=== PATIENT | female | born 1960 | race Caucasian/White ===

== ENCOUNTER 2020-06-29 08:35 | Outpatient (CLI) | payer BC | END 2020-06-29 08:36 | disposition home or self-care (01) | LOC: BICMAMMO 08:35 | PROVIDERS: ATTEND Obstetrics & Gynecology | DX: N63.10 Unspecified lump in the right breast, unspecified quadrant (principal) | CPT/HCPCS: 77066; G0279 ==

== ENCOUNTER 2022-04-29 19:27 | Inpatient (IN) | payer OTHER, SELFPAY ==
[~2022-04-29 19:27] MED LIST: Iopamidol-370 76% 500 ML 1 ML ONE
[2022-04-29] MEDS ORDERED: Rocuronium Bromide 10 MG/ML (10ML VIAL) ONE ×2 (19:39→21:20)
[2022-04-29] MEDS ORDERED: Propofol 1,000 MG/100 ML VIAL IV ONE (19:40)
[2022-04-29 19:49] LABS: #Basophils 0.1 thou/uL (0.0-0.2); #Eosinphils 0.2 thou/uL (0.0-0.7); #Lymphocytes 5.2 thou/uL (1.20-3.40); #Monocytes 1.5 thou/uL (0.11-0.59); #Neutrophils 5.1 thou/uL (1.40-6.50); %Basophils 0.6 % (0.0-1.0); %Lymphocytes 42.6 % (21.0-51.0); %Monocytes 12.5 % (0.0-10.0); %Neutrophils 42.3 % (42.0-75.0); Mean Corpuscular HGB CONC 32.9 g/dL (32.0-36.0); Mean Corpuscular Hemoglobin 31.1 pg (27.0-31.0); Mean Corpuscular Volume 94.6 fl (78.0-98.0); Mean Platelet Volume 7.6 fL (7.4-10.4); Platelet Count 205 10x3/uL (130-400); RBC Distribution Width 17.7 % (11.5-14.5); Red Blood Cell (RBC) Count 2.25 mill/uL (4.20-5.40); White Blood Cell (WBC) Count 12.2 10x3/uL (4.8-10.8)
[2022-04-29 19:58] LABS: ALT (SGPT) 15 U/L (8-55); AST (SGOT) 84 U/L (5-34); Alkaline Phosphatase 132 U/L (40-110); Anion Gap 15 mmol/L (10-20); BUN (Urea Nitrogen) 10 mg/dL (9.8-20.1); Bilirubin, Total 3.2 mg/dL (0.2-1.2); CK (CPK) 43 U/L (29-168); Calc. Creatinine Clearance 0 mL/min (70-130); Calcium 7.7 mg/dL (7.8-10.44); Carbon Dioxide 21 mmol/L (22-29); Chloride 96 mmol/L (98-107); Estimated GFR 56; Glucose 110 mg/dL (70-105); Potassium 3.1 mmol/L (3.5-5.1); Sodium 129 mmol/L (136-145)
[2022-04-29 20:07] LABS: INR-International Normal Ratio 1.5; PTT 43.8 sec (22.9-36.1); Prothrombin Time 18.4 sec (12.0-14.7)
[2022-04-29 20:11] LABS: Actual Bicarbonate (HCO3a) 24.4 mEq/L (22-28); Analyzer IN Cardio ER; Base Excess (BEa) 2.2 mEq/L (-2.0 to +3.0); CO2 Tension 27.4 mmHg (35.0-45.0); Calcium, Ionized (arterial) 1.04 mmol/L (1.12-1.30); Carboxyhemoglobin (COHb) 0.5 gm% (0.0-3.0); Hemoglobin (Hb) 6.7 g/dL (12.0-16.0); Potassium - ABG Lab 2.78 mmol/L (3.70-5.30); pH, Arterial 7.57 (7.35-7.45)
[2022-04-29] MEDS ORDERED: Sodium Chloride 3% 500 ML IVPB SCH (20:15)
[2022-04-29] MEDS ORDERED: manNITOL 20% 0 ML ONE (20:18)
[2022-04-29] MEDS ORDERED: levETIRAcetam 500 MG/5 ML VIAL ONE ×2 (20:18)
[2022-04-29 20:26] LABS: Bilirubin Negative (Negative); Blood, Urine Negative (Negative); Clarity Clear (Clear); Glucose, Urine (Dipstick) Normal (Negative); Ketone, Urine Negative (Negative); Leukocyte Negative Leu/uL (Negative); Nitrite Negative (Negative); Protein, Urine (Dipstick) Negative (Neg-Trace); Specific Gravity, Urine 1.012 (1.002-1.036); Urobilinogen Normal mg/dL (Less than 2); pH, Urine 6.5 (5.0-9.0)
[2022-04-29] MEDS ORDERED: Mannitol 12.5 GM/50 ML ONE (20:27)
[2022-04-29] MEDS ORDERED: Midazolam HCl 2 mg/2 ml Vial ONE (20:27)
[2022-04-29] MEDS ORDERED: EPINEPHrine 1 MG/ML AMP ONE (21:11)
[2022-04-29] MEDS ORDERED: Lidocaine 1% (PF) 30 ML VIAL ONE (21:11)
[2022-04-29] MEDS ORDERED: PHENYLEPHRINE-NS 100 MCG/ML 10 ML SYRINGE ONE (21:20)
[2022-04-29] MEDS ORDERED: Albumin 5% 500 ML ONE (21:23)
[2022-04-29 21:39] LABS: Acetaminophen Less than 10.0 mcg/mL (10.0-30.0); Alcohol 149 mg/dL (Less than 10); Salicylate Less than 8.0 mg/dL (15.0-30.0)
[2022-04-29] MEDS ORDERED: Thrombin 5000 UNITS/5 ML VIAL ONE (21:40)
[2022-04-29 21:58] LABS: SARS-CoV-2 NAA Rapid Test Not Detected (NotDetected)
[2022-04-29 22:03] LABS: Amphetamine Not Detected (NotDetected); Barbiturates Screen Not Detected (NotDetected); Benzodiazepine Screen Detected (NotDetected); Cocaine Metabolite Screen Not Detected (NotDetected); Methadone Not Detected (NotDetected); Methamphetamine Not Detected (NotDetected); Opiate Screen Not Detected (NotDetected); Oxycodone Screen Not Detected (NotDetected); Phencyclidine (PCP) Not Detected (NotDetected); THC/Cannabinoid Screen Not Detected (NotDetected); Tricyclic Screen Not Detected (NotDetected)
[2022-04-29] MEDS ORDERED: Ondansetron PF 4 MG/2 ML Vial IVP PRN (22:29)
[2022-04-29] MEDS ORDERED: Dextrose 5% in Water 1,000 ML IV PRN (22:29)
[2022-04-29] MEDS ORDERED: Dextrose 50% Abboject 50 ML SYRINGE SLOW IVP PRN (22:29)
[2022-04-29] MEDS ORDERED: TETANUS, DIPHTHERIA TOX,ADULT (TDVAX) 0.5 ML VIAL IM ONE (22:29)
[2022-04-29] MEDS ORDERED: Ipratropium/Albuterol 3 ML NEB NEB PRN (22:29)
[2022-04-29] MEDS ORDERED: Insulin Regular 300 UNITS/3 ML VIAL SC PRN (22:29)
[2022-04-29 22:33] LABS: PTT 48.1 sec (22.9-36.1)
[2022-04-29 22:39] LABS: INR-International Normal Ratio 1.9; Prothrombin Time 22.9 sec (12.0-14.7)
[2022-04-29 22:52] LABS: Actual Bicarbonate (HCO3a) 19.4 mEq/L (22-28); Base Excess (BEa) -5.1 mEq/L (-2.0 to +3.0); CO2 Tension 33.1 mmHg (35.0-45.0); Calcium, Ionized (arterial) 0.97 mmol/L (1.12-1.30); Carboxyhemoglobin (COHb) 0.6 gm% (0.0-3.0); Hemoglobin (Hb) 7.4 g/dL (12.0-16.0); O2 Tension (PaO2), arterial 119.8 mmHg (> 80.0); Potassium - ABG Lab 2.95 mmol/L (3.70-5.30); pH, Arterial 7.39 (7.35-7.45)
[2022-04-29 22:56] LABS: ALV-art Gradient 124.025 mmHg (0-20); Puncture Site ART LINE
[2022-04-29] MEDS ORDERED: Propofol 1,000 MG/100 ML VIAL IV PRN (23:00)
[2022-04-29] MEDS ORDERED: Fentanyl CADD 100 ML IV SCH (23:00)
[2022-04-29] MEDS ORDERED: Ventilator Sedation Protocol 1 EACH FS SCH (23:00)
[2022-04-29] MEDS ORDERED: Calcium Chloride 13.6 MEQ in Sodium Chloride 0.9% 100 ML IVPB SCH (23:15)
[2022-04-29 23:23] LABS: #Eosinphils 0.1 thou/uL (0.0-0.7); #Lymphocytes 1.6 thou/uL (1.20-3.40); #Neutrophils 4.7 thou/uL (1.40-6.50); %Basophils 0.7 % (0.0-1.0); %Eosinophils 0.7 % (0.0-10.0); %Lymphocytes 21.6 % (21.0-51.0); %Monocytes 13.8 % (0.0-10.0); %Neutrophils 63.2 % (42.0-75.0); Hemoglobin 6.8 g/dL (12.0-16.0); Mean Corpuscular HGB CONC 32.8 g/dL (32.0-36.0); Mean Corpuscular Hemoglobin 30.7 pg (27.0-31.0); Mean Corpuscular Volume 93.3 fl (78.0-98.0); Mean Platelet Volume 7.3 fL (7.4-10.4); Platelet Count 130 10x3/uL (130-400); RBC Distribution Width 14.6 % (11.5-14.5); White Blood Cell (WBC) Count 7.5 10x3/uL (4.8-10.8)
[2022-04-29 23:41] LABS: Anion Gap 14 mmol/L (10-20); BUN (Urea Nitrogen) 8 mg/dL (9.8-20.1); Calc. Creatinine Clearance 0 mL/min (70-130); Carbon Dioxide 18 mmol/L (22-29); Chloride 102 mmol/L (98-107); Estimated GFR 82; Glucose 134 mg/dL (70-105); Magnesium 1.5 mg/dL (1.6-2.6); Phosphorus 3.6 mg/dL (2.3-4.7); Potassium 2.9 mmol/L (3.5-5.1); Sodium 131 mmol/L (136-145)
[2022-04-29 23:42] LABS: Lactic Acid 4.3 mmol/L (0.5-2.2)
[2022-04-29 23:43] LABS: Calcium 6.6 mg/dL (7.8-10.44)
[2022-04-29] MEDS ORDERED: Magnesium 2 GM/50 ML(in water) 2 GM in Premix Bag 1 BAG IVPB SCH (23:45)
[2022-04-29] MEDS: Sodium Chloride 0.9% 1,000 ML IV SCH (23:48)
[2022-04-29] MEDS ORDERED: Potassium Phosphate 30 MMOL in Sodium Chloride 0.9% 250 ML 250 ML IVPB SCH (23:59)
[2022-04-29] MEDS ORDERED: Acetaminophen 325 MG TAB PO SCH (23:59)
[2022-04-30 00:01] LABS: Fibrinogen 64 mg/dL (253-463)
[2022-04-30 04:24] LABS: Puncture Site RRA
[2022-04-30] MEDS ORDERED: Fentanyl CADD 100 ML ONE (05:01)
[2022-04-30 05:31] LABS: Actual Bicarbonate (HCO3a) 19.1 mEq/L (22-28); Base Excess (BEa) -2.6 mEq/L (-2.0 to +3.0); Carboxyhemoglobin (COHb) 0.3 gm% (0.0-3.0); Hemoglobin (Hb) 7.9 g/dL (12.0-16.0); O2 Tension (PaO2), arterial 115.6 mmHg (> 80.0); Potassium - ABG Lab 3.25 mmol/L (3.70-5.30); pH, Arterial 7.54 (7.35-7.45)
[2022-04-30] MEDS: CEFAZOLIN 2 GM in Sodium Chloride 0.9% 100 ML IVPB SCH ×3 (05:32→22:07)
[2022-04-30 05:34] LABS: ALV-art Gradient 141.225 mmHg (0-20); CO2 Tension 22.7 mmHg (35.0-45.0); Puncture Site ART LINE
[2022-04-30 05:36] LABS: #Monocytes 1.4 thou/uL (0.11-0.59); #Neutrophils 8.6 thou/uL (1.40-6.50); %Basophils 0.3 % (0.0-1.0); %Eosinophils 0.4 % (0.0-10.0); %Lymphocytes 16.6 % (21.0-51.0); %Monocytes 11.4 % (0.0-10.0); %Neutrophils 71.3 % (42.0-75.0); Hemoglobin 7.8 g/dL (12.0-16.0); Mean Corpuscular Volume 91.3 fl (78.0-98.0); Mean Platelet Volume 7.4 fL (7.4-10.4); Platelet Count 159 10x3/uL (130-400); RBC Distribution Width 14.7 % (11.5-14.5); Red Blood Cell (RBC) Count 2.52 mill/uL (4.20-5.40)
[2022-04-30 05:52] LABS: INR-International Normal Ratio 1.4; PTT 37.5 sec (22.9-36.1); Prothrombin Time 17.9 sec (12.0-14.7)
[2022-04-30 05:54] LABS: Lactic Acid 3.1 mmol/L (0.5-2.2)
[2022-04-30] MEDS ORDERED: CEFAZOLIN 1 GM VIAL SLOW IVP SCH (06:00)
[2022-04-30 06:06] LABS: ALT (SGPT) 13 U/L (8-55); AST (SGOT) 58 U/L (5-34); Albumin 2.3 g/dL (3.5-5.0); Alkaline Phosphatase 87 U/L (40-110); Anion Gap 14 mmol/L (10-20); BUN (Urea Nitrogen) 7 mg/dL (9.8-20.1); Bilirubin, Total 4.8 mg/dL (0.2-1.2); Calc. Creatinine Clearance 78 mL/min (70-130); Calcium 8.9 mg/dL (7.8-10.44); Carbon Dioxide 20 mmol/L (22-29); Chloride 103 mmol/L (98-107); Estimated GFR 84; Globulin 4.1 g/dL (2.4-3.5); Glucose 134 mg/dL (70-105); Magnesium 2.1 mg/dL (1.6-2.6); Phosphorus 4.2 mg/dL (2.3-4.7); Potassium 3.2 mmol/L (3.5-5.1); Protein, Total 6.4 g/dL (6.0-8.3); Sodium 134 mmol/L (136-145)
[2022-04-30] MEDS: Oxazepam 10 MG CAP PO SCH ×3 (06:47→22:08)
[2022-04-30] MEDS: Ipratropium/Albuterol 3 ML NEB NEB SCH ×3 (07:34→18:31)
[2022-04-30] MEDS ORDERED: Vecuronium Bromide 50 MG in Sodium Chloride 0.9% 250 ML 250 ML IV SCH (07:45)
[2022-04-30] MEDS ORDERED: levETIRAcetam in NS 500 MG in Premix Bag 1 BAG IVPB SCH (09:00)
[2022-04-30] MEDS ORDERED: Famotidine/PF 20 mg/2ml Vial SLOW IVP SCH (09:00)
[2022-04-30] MEDS: Sodium Chloride 0.9% 1,000 ML IV SCH ×2 (09:48→20:06)
[2022-04-30] MEDS ORDERED: Albumin 5% 250 ML ONE ×3 (10:13→18:39)
[2022-04-30 10:21] LABS: Actual Bicarbonate (HCO3a) 22.6 mEq/L (22-28); Base Excess (BEa) -0.9 mEq/L (-2.0 to +3.0); CO2 Tension 31.5 mmHg (35.0-45.0); Calcium, Ionized (arterial) 1.12 mmol/L (1.12-1.30); Carboxyhemoglobin (COHb) 0.9 gm% (0.0-3.0); Hemoglobin (Hb) 6.1 g/dL (12.0-16.0); O2 Tension (PaO2), arterial 115.4 mmHg (> 80.0); Potassium - ABG Lab 3.67 mmol/L (3.70-5.30); pH, Arterial 7.47 (7.35-7.45)
[2022-04-30 10:25] LABS: Puncture Site Arterial Line
[2022-04-30 10:26] LABS: ALV-art Gradient 130.425 mmHg (0-20)
[2022-04-30] MEDS: Polyethylene Glycol 3350 17 GM Packet PO SCH (11:49)
[2022-04-30] MEDS: Pantoprazole 40 MG VIAL IVP SCH ×2 (11:49→22:07)
[2022-04-30] MEDS: Thiamine 100 MG TAB PO SCH (11:49)
[2022-04-30] MEDS: Folic Acid 1 MG TAB PO SCH (11:49)
[2022-04-30] MEDS: levETIRAcetam 500 MG/5 ML VIAL SLOW IVP SCH ×2 (11:49→22:08)
[2022-04-30] MEDS: Senokot S 8.6-50 MG TAB PO SCH ×2 (11:49→22:35)
[2022-04-30] MEDS: Multivitamin W/ Minerals 1 TAB PO SCH (11:49)
[2022-04-30] MEDS ORDERED: Hydrocortisone Sod Succ/PF 100 mg/2 ml Vial IVP SCH (12:00)
[2022-04-30 14:41] LABS: #Lymphocytes 1.2 thou/uL (1.20-3.40); #Monocytes 1.4 thou/uL (0.11-0.59); #Neutrophils 8.8 thou/uL (1.40-6.50); %Basophils 0.4 % (0.0-1.0); %Eosinophils 0.2 % (0.0-10.0); %Lymphocytes 10.6 % (21.0-51.0); %Monocytes 12.3 % (0.0-10.0); %Neutrophils 76.6 % (42.0-75.0); Hemoglobin 6.8 g/dL (12.0-16.0); Mean Corpuscular HGB CONC 34.9 g/dL (32.0-36.0); Mean Corpuscular Hemoglobin 31.4 pg (27.0-31.0); Mean Corpuscular Volume 90.1 fl (78.0-98.0); Mean Platelet Volume 7.5 fL (7.4-10.4); Platelet Count 124 10x3/uL (130-400); RBC Distribution Width 14.5 % (11.5-14.5); Red Blood Cell (RBC) Count 2.16 mill/uL (4.20-5.40); White Blood Cell (WBC) Count 11.5 10x3/uL (4.8-10.8)
[2022-04-30 14:55] LABS: INR-International Normal Ratio 1.6; Prothrombin Time 19.7 sec (12.0-14.7)
[2022-04-30 14:56] LABS: PTT 39.4 sec (22.9-36.1)
[2022-04-30] MEDS ORDERED: Phytonadione 5 MG in Sodium Chloride 0.9% 50 ML IVPB SCH (15:15)
[2022-04-30 15:18] LABS: Anion Gap 15 mmol/L (10-20); BUN (Urea Nitrogen) 8 mg/dL (9.8-20.1); Calc. Creatinine Clearance 70 mL/min (70-130); Calcium 8.1 mg/dL (7.8-10.44); Carbon Dioxide 20 mmol/L (22-29); Chloride 105 mmol/L (98-107); Estimated GFR 74; Glucose 169 mg/dL (70-105); Phosphorus 5.7 mg/dL (2.3-4.7); Potassium 3.6 mmol/L (3.5-5.1); Sodium 136 mmol/L (136-145)
[2022-04-30] MEDS ORDERED: Potassium Chloride 20 MEQ in Premix Bag 1 BAG IVPB SCH (15:45)
[2022-04-30] MEDS: Hydrocortisone Sod Succ/PF 100 mg/2 ml Vial IVP SCH ×2 (17:34→23:20)
[2022-04-30] MEDS: NOREPINEPHRINE 8 MG/250 ML-D5W 250 ML IVPB PRN (19:47)
[2022-04-30 21:01] LABS: Base Excess (BEa) -4.3 mEq/L (-2.0 to +3.0); CO2 Tension 39.2 mmHg (35.0-45.0); Calcium, Ionized (arterial) 1.12 mmol/L (1.12-1.30); Carboxyhemoglobin (COHb) 1.6 gm% (0.0-3.0); O2 Tension (PaO2), arterial 100.2 mmHg (> 80.0); Potassium - ABG Lab 3.95 mmol/L (3.70-5.30); pH, Arterial 7.35 (7.35-7.45)
[2022-04-30 21:02] LABS: Puncture Site Arterial Line
[2022-04-30] MEDS ORDERED: Calcium Chloride 1 GM/10 ML Abboject SYRINGE IVP SCH (21:45)
[2022-04-30] MEDS ORDERED: Midazolam In 0.9 % NaCl/PF 100 ML IVPB SCH (23:00)
[2022-04-30] MEDS: Vecuronium 10 MG VIAL ONE ×2 (23:21→23:22)
[2022-04-30] MEDS ORDERED: Sterile Water 10 ML VIAL FS PRN (23:29)
[2022-04-30] MEDS ORDERED: Vecuronium 10 MG VIAL IV SCH (23:30)
[2022-04-30] MEDS ORDERED: manNITOL 20% 0 ML ONE (23:46)
[2022-04-30] MEDS ORDERED: Mannitol 12.5 GM/50 ML SLOW IVP SCH (23:59)
[2022-05-01 05:05] LABS: #Lymphocytes 1.4 thou/uL (1.20-3.40); #Monocytes 1.6 thou/uL (0.11-0.59); #Neutrophils 10.7 thou/uL (1.40-6.50); %Eosinophils 0.1 % (0.0-10.0); %Lymphocytes 10.3 % (21.0-51.0); %Monocytes 11.7 % (0.0-10.0); %Neutrophils 77.8 % (42.0-75.0); Hemoglobin 5.8 g/dL (12.0-16.0); Mean Corpuscular HGB CONC 34.3 g/dL (32.0-36.0); Mean Corpuscular Hemoglobin 31.2 pg (27.0-31.0); Mean Corpuscular Volume 90.8 fl (78.0-98.0); Mean Platelet Volume 7.4 fL (7.4-10.4); Platelet Count 100 10x3/uL (130-400); RBC Distribution Width 13.6 % (11.5-14.5); Red Blood Cell (RBC) Count 1.85 mill/uL (4.20-5.40); White Blood Cell (WBC) Count 13.8 10x3/uL (4.8-10.8)
[2022-05-01 05:19] LABS: INR-International Normal Ratio 1.6; Prothrombin Time 19.8 sec (12.0-14.7)
[2022-05-01 05:20] LABS: PTT 40.1 sec (22.9-36.1)
[2022-05-01] MEDS: Sodium Chloride 0.9% 1,000 ML IV SCH ×2 (05:55→18:15)
[2022-05-01] MEDS: CEFAZOLIN 2 GM in Sodium Chloride 0.9% 100 ML IVPB SCH ×3 (05:55→21:23)
[2022-05-01] MEDS: Hydrocortisone Sod Succ/PF 100 mg/2 ml Vial IVP SCH ×4 (05:56→23:16)
[2022-05-01 06:01] LABS: ALT (SGPT) 7 U/L (8-55); AST (SGOT) 32 U/L (5-34); Albumin 3.1 g/dL (3.5-5.0); Alkaline Phosphatase 57 U/L (40-110); Anion Gap 12 mmol/L (10-20); BUN (Urea Nitrogen) 8 mg/dL (9.8-20.1); Calc. Creatinine Clearance 82 mL/min (70-130); Calcium 8.6 mg/dL (7.8-10.44); Carbon Dioxide 22 mmol/L (22-29); Chloride 108 mmol/L (98-107); Estimated GFR 83; Globulin 2.9 g/dL (2.4-3.5); Glucose 194 mg/dL (70-105); Phosphorus 3.7 mg/dL (2.3-4.7); Potassium 3.6 mmol/L (3.5-5.1); Sodium 138 mmol/L (136-145)
[2022-05-01 06:54] LABS: Actual Bicarbonate (HCO3a) 21.9 mEq/L (22-28); Base Excess (BEa) -3.4 mEq/L (-2.0 to +3.0); CO2 Tension 40.8 mmHg (35.0-45.0); Calcium, Ionized (arterial) 1.22 mmol/L (1.12-1.30); Carboxyhemoglobin (COHb) 0.7 gm% (0.0-3.0); Hemoglobin (Hb) 8.5 g/dL (12.0-16.0); O2 Tension (PaO2), arterial 92.2 mmHg (> 80.0); Potassium - ABG Lab 3.83 mmol/L (3.70-5.30); pH, Arterial 7.35 (7.35-7.45)
[2022-05-01 06:56] LABS: Puncture Site Arterial Line
[2022-05-01] MEDS: Ipratropium/Albuterol 3 ML NEB NEB SCH ×3 (06:57→19:21)
[2022-05-01] MEDS ORDERED: Levothyroxine 100 MCG SDV SLOW IVP SCH (07:00)
[2022-05-01] MEDS: Levothyroxine Sodium 400 MCG in Sodium Chloride 0.9% 100 ML IVPB SCH ×2 (07:59→17:51)
[2022-05-01] MEDS ORDERED: Potassium Phosphate 15 MMOL in Sodium Chloride 0.9% 250 ML 250 ML IVPB SCH (08:30)
[2022-05-01] MEDS: Multivitamin W/ Minerals 1 TAB PO SCH (09:03)
[2022-05-01] MEDS: Thiamine 100 MG TAB PO SCH (09:03)
[2022-05-01] MEDS: Folic Acid 1 MG TAB PO SCH (09:03)
[2022-05-01] MEDS: Polyethylene Glycol 3350 17 GM Packet PO SCH (09:03)
[2022-05-01] MEDS: levETIRAcetam 500 MG/5 ML VIAL SLOW IVP SCH ×2 (09:04→21:28)
[2022-05-01] MEDS: Senokot S 8.6-50 MG TAB PO SCH ×2 (09:05→21:28)
[2022-05-01] MEDS: Pantoprazole 40 MG VIAL IVP SCH ×2 (09:05→21:28)
[2022-05-01 12:13] LABS: #Lymphocytes 1.2 thou/uL (1.20-3.40); #Monocytes 1.3 thou/uL (0.11-0.59); #Neutrophils 9.4 thou/uL (1.40-6.50); %Basophils 0.1 % (0.0-1.0); %Eosinophils 0.2 % (0.0-10.0); %Lymphocytes 9.7 % (21.0-51.0); %Monocytes 11.2 % (0.0-10.0); %Neutrophils 78.8 % (42.0-75.0); Hemoglobin 8.3 g/dL (12.0-16.0); Mean Corpuscular Hemoglobin 30.9 pg (27.0-31.0); Mean Corpuscular Volume 90.9 fl (78.0-98.0); Mean Platelet Volume 7.7 fL (7.4-10.4); Platelet Count 98 10x3/uL (130-400)
[2022-05-01 13:41] LABS: INR-International Normal Ratio 1.5; Prothrombin Time 18.7 sec (12.0-14.7)
[2022-05-01 13:42] LABS: PTT 38.3 sec (22.9-36.1)
[2022-05-02] MEDS ORDERED: Midazolam HCl 2 mg/2 ml Vial ONE (02:12)
[2022-05-02] MEDS: Sodium Chloride 0.9% 1,000 ML IV SCH ×3 (02:14→21:18)
[2022-05-02] MEDS ORDERED: Midazolam HCl 2 mg/2 ml Vial SLOW IVP SCH (02:30)
[2022-05-02] MEDS: Hydrocortisone Sod Succ/PF 100 mg/2 ml Vial IVP SCH ×4 (05:33→23:46)
[2022-05-02] MEDS: CEFAZOLIN 2 GM in Sodium Chloride 0.9% 100 ML IVPB SCH (05:33)
[2022-05-02 05:48] LABS: INR-International Normal Ratio 1.4; Prothrombin Time 17.5 sec (12.0-14.7)
[2022-05-02 05:50] LABS: #Lymphocytes 1.2 thou/uL (1.20-3.40); #Monocytes 1.3 thou/uL (0.11-0.59); #Neutrophils 10.2 thou/uL (1.40-6.50); %Eosinophils 0.2 % (0.0-10.0); %Lymphocytes 9.3 % (21.0-51.0); %Monocytes 10.4 % (0.0-10.0); %Neutrophils 80.2 % (42.0-75.0); Hemoglobin 9.1 g/dL (12.0-16.0); Mean Corpuscular HGB CONC 33.7 g/dL (32.0-36.0); Mean Corpuscular Hemoglobin 30.3 pg (27.0-31.0); Mean Corpuscular Volume 90.1 fl (78.0-98.0); Mean Platelet Volume 7.8 fL (7.4-10.4); Platelet Count 111 10x3/uL (130-400); RBC Distribution Width 15.1 % (11.5-14.5); Red Blood Cell (RBC) Count 2.99 mill/uL (4.20-5.40); White Blood Cell (WBC) Count 12.7 10x3/uL (4.8-10.8)
[2022-05-02 06:07] LABS: Anion Gap 11 mmol/L (10-20); BUN (Urea Nitrogen) 12 mg/dL (9.8-20.1); Calc. Creatinine Clearance 89 mL/min (70-130); Calcium 8.8 mg/dL (7.8-10.44); Carbon Dioxide 21 mmol/L (22-29); Chloride 114 mmol/L (98-107); Estimated GFR 93; Glucose 127 mg/dL (70-105); Magnesium 2.1 mg/dL (1.6-2.6); Potassium 3.6 mmol/L (3.5-5.1); Sodium 142 mmol/L (136-145)
[2022-05-02] MEDS: Ipratropium/Albuterol 3 ML NEB NEB SCH ×3 (06:58→20:06)
[2022-05-02] MEDS ORDERED: Potassium Phosphate 30 MMOL in Sodium Chloride 0.9% 250 ML 250 ML IVPB SCH (07:45)
[2022-05-02] MEDS: Pantoprazole 40 MG VIAL IVP SCH ×2 (08:26→21:17)
[2022-05-02] MEDS: Senokot S 8.6-50 MG TAB PO SCH ×2 (08:26→21:17)
[2022-05-02] MEDS: Folic Acid 1 MG TAB PO SCH (08:26)
[2022-05-02] MEDS: levETIRAcetam 500 MG/5 ML VIAL SLOW IVP SCH ×2 (08:26→21:17)
[2022-05-02] MEDS: Multivitamin W/ Minerals 1 TAB PO SCH (08:26)
[2022-05-02] MEDS: Thiamine 100 MG TAB PO SCH (08:27)
[2022-05-02] MEDS: Polyethylene Glycol 3350 17 GM Packet PO SCH (08:27)
[2022-05-02] MEDS ORDERED: Piperacillin/Tazobactam 3.375 GM in Sodium Chloride 0.9% 100 ML IVPB SCH ×2 (10:15→10:30)
[2022-05-02 10:17] LABS: Actual Bicarbonate (HCO3a) 23.6 mEq/L (22-28); Base Excess (BEa) 2.3 mEq/L (-2.0 to +3.0); CO2 Tension 25.3 mmHg (35.0-45.0); Calcium, Ionized (arterial) 1.18 mmol/L (1.12-1.30); Carboxyhemoglobin (COHb) 0.3 gm% (0.0-3.0); Hemoglobin (Hb) 8.9 g/dL (12.0-16.0); O2 Tension (PaO2), arterial 70.5 mmHg (> 80.0); Potassium - ABG Lab 3.53 mmol/L (3.70-5.30); pH, Arterial 7.59 (7.35-7.45)
[2022-05-02 10:19] LABS: Puncture Site Arterial Line
[2022-05-02 10:20] LABS: ALV-art Gradient 183.075 mmHg (0-20)
[2022-05-02 10:24] LABS: Free T4 (Free Thyroxine) 2.23 ng/dL (0.70-1.48); Thyroid Stimulating Hormone 0.3116 uIU/mL (0.35-4.94)
[2022-05-02 10:52] LABS: Actual Bicarbonate (HCO3a) 22.3 mEq/L (22-28); Base Excess (BEa) -0.1 mEq/L (-2.0 to +3.0); CO2 Tension 27.9 mmHg (35.0-45.0); Carboxyhemoglobin (COHb) 0.5 gm% (0.0-3.0); Hemoglobin (Hb) 8.7 g/dL (12.0-16.0); O2 Tension (PaO2), arterial 78.4 mmHg (> 80.0); Potassium - ABG Lab 3.64 mmol/L (3.70-5.30); pH, Arterial 7.52 (7.35-7.45)
[2022-05-02 10:57] LABS: ALV-art Gradient 171.925 mmHg (0-20); Puncture Site Arterial Line
[2022-05-02 11:32] LABS: Base Excess (BEa) 0.6 mEq/L (-2.0 to +3.0); CO2 Tension 39.3 mmHg (35.0-45.0); Calcium, Ionized (arterial) 1.22 mmol/L (1.12-1.30); Carboxyhemoglobin (COHb) 0.4 gm% (0.0-3.0); Hemoglobin (Hb) 8.7 g/dL (12.0-16.0); Potassium - ABG Lab 3.83 mmol/L (3.70-5.30); pH, Arterial 7.42 (7.35-7.45)
[2022-05-02 11:36] LABS: Puncture Site Arterial Line
[2022-05-02 11:37] LABS: ALV-art Gradient 398.875 mmHg (0-20)
[2022-05-02 14:37] LABS: Follicle Stimulating Hormone 32.29 mIU/mL (See Ranges); Luteinizing Hormone 10.41 mIU/mL (See Ranges)
[2022-05-02] MEDS: Levothyroxine Sodium 400 MCG in Sodium Chloride 0.9% 100 ML IVPB SCH ×3 (14:38→20:14)
[2022-05-02] MEDS: Piperacillin/Tazobactam 3.375 GM in Sodium Chloride 0.9% 100 ML IVPB SCH ×2 (15:39→23:46)
[2022-05-02] MEDS: NOREPINEPHRINE 8 MG/250 ML-D5W 250 ML IVPB PRN (18:09)
[2022-05-02] MEDS: Vasopressin 20 UNIT, Admixture Fee 1 EACH in Sodium Chloride 0.9% 50 ML IV SCH (20:13)
[2022-05-03] MEDS: Levothyroxine Sodium 400 MCG in Sodium Chloride 0.9% 100 ML IVPB SCH ×4 (00:59→18:21)
[2022-05-03] MEDS: Vasopressin 20 UNIT, Admixture Fee 1 EACH in Sodium Chloride 0.9% 50 ML IV SCH ×3 (03:31→18:21)
[2022-05-03] MEDS: Piperacillin/Tazobactam 3.375 GM in Sodium Chloride 0.9% 100 ML IVPB SCH ×2 (06:21→15:21)
[2022-05-03] MEDS: Hydrocortisone Sod Succ/PF 100 mg/2 ml Vial IVP SCH ×3 (06:22→18:20)
[2022-05-03 06:52] LABS: INR-International Normal Ratio 1.4; Prothrombin Time 17.7 sec (12.0-14.7)
[2022-05-03 06:53] LABS: PTT 34.7 sec (22.9-36.1)
[2022-05-03 07:10] LABS: ALT (SGPT) Less than 7 U/L (8-55); AST (SGOT) 34 U/L (5-34); Albumin 2.6 g/dL (3.5-5.0); Alkaline Phosphatase 62 U/L (40-110); Anion Gap 9 mmol/L (10-20); BUN (Urea Nitrogen) 14 mg/dL (9.8-20.1); Bilirubin, Total 6.1 mg/dL (0.2-1.2); Calc. Creatinine Clearance 97 mL/min (70-130); Calcium 8.8 mg/dL (7.8-10.44); Carbon Dioxide 23 mmol/L (22-29); Chloride 118 mmol/L (98-107); Estimated GFR 99; Globulin 3.8 g/dL (2.4-3.5); Glucose 170 mg/dL (70-105); Magnesium 2.2 mg/dL (1.6-2.6); Phosphorus 3.6 mg/dL (2.3-4.7); Protein, Total 6.4 g/dL (6.0-8.3); Sodium 146 mmol/L (136-145)
[2022-05-03] MEDS: Ipratropium/Albuterol 3 ML NEB NEB SCH ×3 (07:43→18:48)
[2022-05-03 08:46] LABS: Actual Bicarbonate (HCO3a) 24.4 mEq/L (22-28); Base Excess (BEa) -1.8 mEq/L (-2.0 to +3.0); CO2 Tension 48.5 mmHg (35.0-45.0); Calcium, Ionized (arterial) 1.31 mmol/L (1.12-1.30); Carboxyhemoglobin (COHb) 1.2 gm% (0.0-3.0); Hemoglobin (Hb) 8.4 g/dL (12.0-16.0); O2 Tension (PaO2), arterial 84.2 mmHg (> 80.0); pH, Arterial 7.32 (7.35-7.45)
[2022-05-03 08:47] LABS: ALV-art Gradient 140.375 mmHg (0-20); Puncture Site Arterial Line
[2022-05-03] MEDS: Folic Acid 1 MG TAB PO SCH (10:22)
[2022-05-03] MEDS: Polyethylene Glycol 3350 17 GM Packet PO SCH (10:22)
[2022-05-03] MEDS: Senokot S 8.6-50 MG TAB PO SCH (10:22)
[2022-05-03] MEDS: Thiamine 100 MG TAB PO SCH (10:22)
[2022-05-03] MEDS: Multivitamin W/ Minerals 1 TAB PO SCH (10:23)
[2022-05-03] MEDS: Pantoprazole 40 MG VIAL IVP SCH (10:43)
[2022-05-03] MEDS: levETIRAcetam 500 MG/5 ML VIAL SLOW IVP SCH (11:31)
[2022-05-03 14:54] VITALS: BMI 26.4
[2022-05-03 15:07] VITALS: BP 95/47
[2022-05-03] MEDS: Sodium Chloride 0.9% 1,000 ML IV SCH ×2 (16:22→18:27)
[2022-05-03 20:09] VITALS: TEMP 98.5
[2022-05-04 16:14] LABS: Growth Hormone 0.5 ng/mL (0.0-10.0)
== END 2022-05-02 19:12 | disposition expired | DRG 25 ==
LOC: ERS 19:27 → SDC/OP 21:01 → CCU 22:29
PROVIDERS: ADMIT Surgery; ATTEND Surgery
PROC: 00C40ZZ Extirpation of Matter from Intracranial Subdural Space, Open Approach (ICD-10-PCS; principal; 2022-04-29)
PROC: 30233N1 Transfusion of Nonautologous Red Blood Cells into Peripheral Vein, Percutaneous Approach (ICD-10-PCS; 2022-04-29)
PROC: 3E033XZ Introduction of Vasopressor into Peripheral Vein, Percutaneous Approach (ICD-10-PCS; 2022-04-29)
PROC: 30233J1 Transfusion of Nonautologous Serum Albumin into Peripheral Vein, Percutaneous Approach (ICD-10-PCS; 2022-04-29)
PROC: 0BH17EZ Insertion of Endotracheal Airway into Trachea, Via Natural or Artificial Opening (ICD-10-PCS; 2022-04-29)
PROC: 5A1945Z Respiratory Ventilation, 24-96 Consecutive Hours (ICD-10-PCS; 2022-04-29)
PROC: 0DH67UZ Insertion of Feeding Device into Stomach, Via Natural or Artificial Opening (ICD-10-PCS; 2022-04-29)
PROC: 3E0G76Z Introduction of Nutritional Substance into Upper GI, Via Natural or Artificial Opening (ICD-10-PCS; 2022-04-29)
PROC: 009600Z Drainage of Cerebral Ventricle with Drainage Device, Open Approach (ICD-10-PCS; 2022-04-30)
PROC: 30233K1 Transfusion of Nonautologous Frozen Plasma into Peripheral Vein, Percutaneous Approach (ICD-10-PCS; 2022-04-30)
PROC: 30233M1 Transfusion of Nonautologous Plasma Cryoprecipitate into Peripheral Vein, Percutaneous Approach (ICD-10-PCS; 2022-04-30)
DX: J96.00 Acute respiratory failure, unspecified whether with hypoxia or hypercapnia; S06.A1XA Traumatic brain compression with herniation, initial encounter; E87.1 Hypo-osmolality and hyponatremia; N17.9 Acute kidney failure, unspecified; D62 Acute posthemorrhagic anemia; G91.1 Obstructive hydrocephalus; R18.8 Other ascites; Z66 Do not resuscitate; S06.1XAA Traumatic cerebral edema with loss of consciousness status unknown, initial encounter; S02.40EA Zygomatic fracture, right side, initial encounter for closed fracture; S02.19XA Other fracture of base of skull, initial encounter for closed fracture; S02.40CA Maxillary fracture, right side, initial encounter for closed fracture; E03.9 Hypothyroidism, unspecified; K74.60 Unspecified cirrhosis of liver; R40.2432 Glasgow coma scale score 3-8, at arrival to emergency department; E87.6 Hypokalemia; T68.XXXA Hypothermia, initial encounter; Z98.890 Other specified postprocedural states; Z88.5 Allergy status to narcotic agent; Z88.1 Allergy status to other antibiotic agents; Z20.822 Contact with and (suspected) exposure to COVID-19; R79.1 Abnormal coagulation profile; F10.229 Alcohol dependence with intoxication, unspecified; Z78.1 Physical restraint status; W18.30XA Fall on same level, unspecified, initial encounter; Y92.481 Parking lot as the place of occurrence of the external cause; I95.9 Hypotension, unspecified
CPT/HCPCS: 31500; 36415; 36416; 36430; 36600; 70450; 71045; 71260; 72125; 74018; 74177; 78610; 80048; 80053; 80306; 80307; 81003; 82024; 82140; 82533; 82550; 82805; 83001; 83002; 83003; 83605; 83735; 83880; 83930; 84100; 84146; 84305; 84439; 84443; 84484; 85025; 85384; 85610; 85730; 86850; 86900; 86901; 87070; 87205; 93005; 94002; 94003; 94640; 96365; 96374; 96375; A9521; C1713; C1751; C9113; G0390; J0171; J1720; J1953; J2001; J2150; J2250; J2543; J2704; J3010; J3430; J3475; J3480; J3490; J7050; J7131; J7620; J7799; P9012; P9016; P9045; P9048; P9059; Q9967; S0028; U0002